=== PATIENT | female | born 1960 | race Caucasian/White ===

== ENCOUNTER 2019-04-12 11:36 | Inpatient (IN) | payer BC, OTHER ==
[~2019-04-12] VITALS: Ht 152.4 cm; Wt 91.2 kg
[2019-04-12 11:55] VITALS: BP_SYST 152
[2019-04-12] MEDS ORDERED: NACL 0.9% 1,000 ML IV ONE (12:41)
[2019-04-12] MEDS ORDERED: KETOROLAC TROMETHAMINE 30 MG VIAL IVP ONE ×2 (12:45→19:18)
[2019-04-12] MEDS ORDERED: ONDANSETRON HCL 4 MG/2 ML VIAL IVP ONE ×2 (12:45→19:18)
[2019-04-12 13:17] LABS: BASOPHILS % (AUTO) 0.4 % (0.0-2.0); EOSINOPHILS # (AUTO) 0.1 K/uL (0.0-0.4); EOSINOPHILS % (AUTO) 1.1 % (0.0-4.0); HEMATOCRIT 39.5 % (36-48); HEMOGLOBIN 12.6 g/dL (12.0-16.0); LYMPHOCYTES # (AUTO) 1.7 K/uL (1.0-5.5); LYMPHOCYTES % (AUTO) 17.9 % (20.5-51.5); MEAN CORPUSCULAR HEMOGLOBIN 25 pg (27-31); MEAN CORPUSCULAR HGB CONC 32 % (32-36); MEAN CORPUSCULAR VOLUME 78 fL (79.0-98.0); MONOCYTES % (AUTO) 10.1 % (1.7-9.3); NEUTROPHILS # (AUTO) 6.8 K/uL (1.8-7.7); NEUTROPHILS % (AUTO) 70.5 % (40.0-70.0); PLATELET COUNT (AUTO) 224 K/uL (130-430); RED BLOOD CELL COUNT(AUTO) 5.04 MIL/uL (4.2-6.2); RED CELL DISTRIBUTION WIDTH 16.8 % (9.0-15.0); WHITE BLOOD COUNT (AUTO) 9.6 K/uL (4.8-10.8)
[2019-04-12 13:38] LABS: CREATININE 0.65 mg/dL (0.55-1.30); POTASSIUM 3.9 mmol/L (3.5-5.1)
[2019-04-12 13:49] LABS: ALBUMIN 3.8 g/dL (3.4-4.8); TOTAL BILIRUBIN 0.7 mg/dL (0.0-1.0)
[2019-04-12] MEDS ORDERED: LOSA25TA3 PO (16:12)
[2019-04-12] MEDS ORDERED: GLU500 PO (16:12)
[2019-04-12] MEDS: NACL 0.9% 1,000 ML IV SCH ×2 (17:00→21:21)
[2019-04-12 17:09] VITALS: BP_SYST 132
[2019-04-12] MEDS ORDERED: BUPIVACAINE /EPINEPHRINE/PF 0.5% 30 ML VIAL INJ ONE (19:18)
[2019-04-12] MEDS ORDERED: DEXAMETHASONE SOD PHOSPHATE 4 MG/ML VIAL IVP ONE (19:18)
[2019-04-12] MEDS ORDERED: LR 1,000 ML IV.SOLN IV ONE (19:18)
[2019-04-12] MEDS ORDERED: NS 1000 ML IV.SOLN IV ONE (19:18)
[2019-04-12] MEDS ORDERED: ROCURONIUM BROMIDE 10 MG/ML (ZEMURON) IV ONE (19:18)
[2019-04-12] MEDS ORDERED: SUCCINYLCHOLINE CHLORIDE 20 MG/ML(QUELICIN) IVP ONE (19:18)
[2019-04-12] MEDS ORDERED: GLYCOPYRROLATE 0.2 MG/ML VIAL IJ ONE (19:18)
[2019-04-12] MEDS ORDERED: NS IRRIG SOLN 1000 ML IR ONE (19:18)
[2019-04-12] MEDS ORDERED: HYDROmorphone 2 MG/ML VIAL IVP ONE (19:18)
[2019-04-12] MEDS ORDERED: NEOSTIGMINE METHYLSULFATE 1 MG/ML, 10 ML VIAL IVP ONE (19:18)
[2019-04-12] MEDS ORDERED: ISOFLURANE 15 MIN GAS INH ONE (19:18)
[2019-04-12] MEDS ORDERED: PROPOFOL 200MG/ 20ML VIAL (DIPRIVAN) IV ONE (19:18)
[2019-04-12 20:51] VITALS: BP_SYST 135
[2019-04-13] VITALS (9 sets, daily range): BP systolic 130–136
[2019-04-13] MEDS ORDERED: MORPHINE 2 MG/ML INJ. SYRINGE IVP PRN (16:45)
[2019-04-13] MEDS: NACL 0.9% 1,000 ML IV SCH (17:00)
[2019-04-13] MEDS ORDERED: cefOXitin SODIUM 2 GM in D5W 100 ML IV ONE (18:00)
[2019-04-13] MEDS ORDERED: LR 1,000 ML IV SCH (20:09)
[2019-04-13] MEDS ORDERED: HYDROmorphone 1 MG INJ. 1 MG/ML AMPUL IVP PRN ×2 (20:15)
[2019-04-13] MEDS ORDERED: ONDANSETRON HCL 4 MG/2 ML VIAL IVP PRN ×2 (20:15→21:00)
[2019-04-14] VITALS (7 sets, daily range): BP systolic 114–154
[2019-04-14] MEDS: HYDROcodone/ACETAMIN 5-325 MG TAB (NORCO/ VICODIN) PO PRN ×3 (04:30→21:21)
[2019-04-14] MEDS: cefOXitin SODIUM 2 GM in D5W 100 ML IV SCH ×3 (05:48→21:22)
[2019-04-14 06:25] LABS: BASOPHILS % (AUTO) 0.1 % (0.0-2.0); EOSINOPHILS % (AUTO) 0.1 % (0.0-4.0); HEMATOCRIT 36.9 % (36-48); HEMOGLOBIN 11.5 g/dL (12.0-16.0); LYMPHOCYTES # (AUTO) 0.7 K/uL (1.0-5.5); LYMPHOCYTES % (AUTO) 5.2 % (20.5-51.5); MEAN CORPUSCULAR HEMOGLOBIN 25 pg (27-31); MEAN CORPUSCULAR HGB CONC 31 % (32-36); MEAN CORPUSCULAR VOLUME 80 fL (79.0-98.0); MONOCYTES # (AUTO) 1.1 K/uL (0.0-1.0); MONOCYTES % (AUTO) 7.7 % (1.7-9.3); NEUTROPHILS % (AUTO) 86.9 % (40.0-70.0); PLATELET COUNT (AUTO) 210 K/uL (130-430); RED BLOOD CELL COUNT(AUTO) 4.64 MIL/uL (4.2-6.2); RED CELL DISTRIBUTION WIDTH 16.5 % (9.0-15.0); WHITE BLOOD COUNT (AUTO) 13.8 K/uL (4.8-10.8)
[2019-04-14 06:35] LABS: ALBUMIN 3.1 g/dL (3.4-4.8); CALCIUM 8.5 mg/dL (8.4-11.0); CREATININE 0.72 mg/dL (0.55-1.30); TOTAL BILIRUBIN 0.6 mg/dL (0.0-1.0)
[2019-04-14] MEDS: LOSARTAN POTASSIUM 25 MG TABLET PO SCH (08:25)
[2019-04-15] VITALS: BP_SYST 145
[2019-04-15] MEDS: cefOXitin SODIUM 2 GM in D5W 100 ML IV SCH ×2 (05:25→13:46)
[2019-04-15 07:55] VITALS: BP_SYST 140
[2019-04-15] MEDS: LOSARTAN POTASSIUM 25 MG TABLET PO SCH (09:18)
[2019-04-15 12:30] VITALS: BP_SYST 116
[2019-04-15] MEDS ORDERED: SODIUM PHOSPHATE,MONO-DIBASIC 133 ML ENEMA RC ONE (13:45)
[2019-04-15 17:18] VITALS: BP_SYST 130
[2019-04-15] MEDS ORDERED: HYDR-4272 PO (19:53)
[2019-04-15 20:36] VITALS: BP_SYST 121
== END 2019-04-15 21:26 | disposition home or self-care (01) | DRG 418 ==
LOC: SED 11:36 → SMU 14:20
PROVIDERS: ADMIT Family Medicine; ATTEND Family Medicine
PROC: 0FT44ZZ Resection of Gallbladder, Percutaneous Endoscopic Approach (ICD-10-PCS; principal; 2019-04-13 17:00)
DX: K80.01 Calculus of gallbladder with acute cholecystitis with obstruction (principal); K82.1 Hydrops of gallbladder; E78.00 Pure hypercholesterolemia, unspecified; E66.9 Obesity, unspecified; I10 Essential (primary) hypertension; K21.9 Gastro-esophageal reflux disease without esophagitis; Z68.39 Body mass index [BMI] 39.0-39.9, adult; Z79.899 Other long term (current) drug therapy
CPT/HCPCS: 36415; 71045; 76700-TC; 78226; 80053; 82962; 83690-TC; 85025; 87081; 88304; 93005; 94010; 96374; 96375; 99285; A9537; C1727; J0330; J0694; J1100; J1170; J1885; J2270; J2405; J2704; J2710; J3490; J7030; J7040; J7060; J7120

== ENCOUNTER 2023-07-25 08:02 | Emergency (ER) | payer OTHER ==
[~2023-07-25] VITALS: Ht 167.6 cm; Wt 99.8 kg
[~2023-07-25 08:02] MED LIST: GLU500 PO; HYDR-4272 PO; LOSA-412 PO
[2023-07-25 08:09] VITALS: BP_SYST 146; PULSE 92; RESP 22; TEMP 98.3; O2SAT 98
[2023-07-25] MEDS: MECLIZINE HCL 25 MG TABLET (ANITVERT) PO ONE (08:33)
[2023-07-25] MEDS: NACL 0.9% 1,000 ML IV ONE (08:34)
[2023-07-25 08:42] LABS: BASOPHILS % (AUTO) 0.5 % (0.0-2.0); EOSINOPHILS # (AUTO) 0.3 K/uL (0.0-0.4); HEMATOCRIT 37.4 % (36-48); HEMOGLOBIN 11.7 g/dL (12.0-16.0); LYMPHOCYTES # (AUTO) 1.1 K/uL (1.0-5.5); MEAN CORPUSCULAR HEMOGLOBIN 21 pg (27-31); MEAN CORPUSCULAR HGB CONC 31 % (32-36); MEAN CORPUSCULAR VOLUME 68 fL (79.0-98.0); MONOCYTES # (AUTO) 0.6 K/uL (0.0-1.0); NEUTROPHILS # (AUTO) 3.7 K/uL (1.8-7.7); NEUTROPHILS % (AUTO) 64.5 % (40.0-70.0); PLATELET COUNT (AUTO) 172 K/uL (130-430); RED BLOOD CELL COUNT(AUTO) 5.48 MIL/uL (4.2-6.2); RED CELL DISTRIBUTION WIDTH 19.6 % (9.0-15.0); WHITE BLOOD COUNT (AUTO) 5.7 K/uL (4.8-10.8)
[2023-07-25 08:55] LABS: CALCIUM 8.7 mg/dL (8.4-11.0); CREATININE 0.57 mg/dL (0.55-1.30); POTASSIUM 4.4 mmol/L (3.5-5.1)
[2023-07-25] MEDS ORDERED: MECL-225 PO (09:40)
[2023-07-25 10:44] LABS: HYPOCHROMASIA 1+
[2023-07-25 10:45] LABS: ANISOCYTOSIS 1+; OVALOCYTES FEW
== END 2023-07-25 10:03 | disposition home or self-care (01) ==
LOC: SED 08:02
DX: H81.10 Benign paroxysmal vertigo, unspecified ear (principal); R11.2 Nausea with vomiting, unspecified; E11.9 Type 2 diabetes mellitus without complications; K21.9 Gastro-esophageal reflux disease without esophagitis; Z79.899 Other long term (current) drug therapy
CPT/HCPCS: 36415; 80048; 82948; 85025; 93005; 99284; J8597